=== PATIENT | female | born 1985 | race Two or more races ===

== ENCOUNTER 2024-10-07 08:27 | Emergency (ER) | payer OTHER ==
[~2024-10-07] VITALS: Ht 170.2 cm; Wt 81.6 kg
[2024-10-07] MEDS ORDERED: ATIVAN1 M1 PO (08:42)
[2024-10-07] MEDS ORDERED: PROAIR RESPICL90 MCG IH (08:43)
[2024-10-07 09:23] LABS: HEMATOCRIT 42.1 % (36.0-45.00); HEMOGLOBIN 14.2 g/dL (12.0-15.00); MEAN CELL VOLUME 81.9 fL (80.00-100.00); MEAN CORPUSCULAR HEMOGLOBIN 27.7 pg (27.00-32.0); MEAN CORPUSCULAR HGB CONC 33.8 g/dl (32.0-36.0); PLATELET COUNT 237 K/uL (150-450); RED BLOOD COUNT 5.14 M/uL (4.00-6.00); RED CELL DISTRIBUTION WIDTH 13.7 % (11.5-14.5)
== END 2024-10-07 10:39 | disposition home or self-care (01) ==
LOC: ER 08:29
PROVIDERS: General Practice
DX: J40 Bronchitis, not specified as acute or chronic (principal); J00 Acute nasopharyngitis [common cold]; Z20.822 Contact with and (suspected) exposure to COVID-19